=== PATIENT | male | born 1940 | race Native Hawaiian/Other Pacific Islander ===

== ENCOUNTER 2016-06-13 10:22 | Outpatient (CLI) | payer OTHER ==
[2016-06-13 10:45] LABS: PLATELET COUNT 382 K/uL (142-355)
== END 2016-06-13 19:13 | disposition home or self-care (01) ==
LOC: LABW 10:22
PROVIDERS: Internal Medicine
DX: D64.89 Other specified anemias (principal); R53.83 Other fatigue
CPT/HCPCS: 36415; 85027

== ENCOUNTER 2016-09-29 14:24 | Outpatient (CLI) | payer OTHER | END 2016-09-29 15:30 | disposition home or self-care (01) | LOC: LABW 14:24 | DX: M10.072 Idiopathic gout, left ankle and foot (principal) | CPT/HCPCS: 36415; 84550; 85651 ==

== ENCOUNTER 2016-10-27 11:07 | Outpatient (CLI) | payer OTHER | END 2016-10-27 12:10 | disposition home or self-care (01) | LOC: LABW 11:07 | DX: M10.071 Idiopathic gout, right ankle and foot (principal); M10.072 Idiopathic gout, left ankle and foot | CPT/HCPCS: 36415; 84550; 85651 ==

== ENCOUNTER 2016-12-08 10:39 | Outpatient (CLI) | payer OTHER | END 2016-12-08 11:40 | disposition home or self-care (01) | LOC: LABW 10:39 | DX: M10.071 Idiopathic gout, right ankle and foot (principal); M10.072 Idiopathic gout, left ankle and foot | CPT/HCPCS: 36415; 84550 ==

== ENCOUNTER 2016-12-20 09:48 | Outpatient (CLI) | payer OTHER | END 2016-12-20 10:50 | disposition home or self-care (01) | LOC: LABW 09:48 | DX: B35.1 Tinea unguium (principal) | CPT/HCPCS: 36415; 84450; 84460 ==

== ENCOUNTER 2017-06-05 11:03 | Outpatient (CLI) | payer OTHER | END 2017-06-05 21:57 | disposition home or self-care (01) | LOC: LABW 11:03 | DX: M10.072 Idiopathic gout, left ankle and foot (principal) | CPT/HCPCS: 36415; 84550; 85651 ==

== ENCOUNTER 2017-09-03 08:13 | Outpatient (CLI) | payer OTHER | END 2017-09-03 20:13 | disposition home or self-care (01) | LOC: LABW 08:13 | DX: M10.071 Idiopathic gout, right ankle and foot (principal); M10.072 Idiopathic gout, left ankle and foot | CPT/HCPCS: 36415; 84550; 85651 ==

== ENCOUNTER 2018-03-04 08:59 | Outpatient (CLI) | payer OTHER | END 2018-03-04 20:21 | disposition home or self-care (01) | LOC: LABW 08:59 | DX: M10.072 Idiopathic gout, left ankle and foot (principal) | CPT/HCPCS: 36415; 84550 ==

== ENCOUNTER 2020-08-16 08:26 | Outpatient (CLI) | payer OTHER | END 2020-08-16 11:00 | disposition home or self-care (01) | LOC: LABW 08:26 | PROVIDERS: ATTEND Podiatrist | DX: M10.072 Idiopathic gout, left ankle and foot (principal) | CPT/HCPCS: 36415; 84550 ==

== ENCOUNTER 2021-09-12 08:41 | Outpatient (CLI) | payer OTHER | END 2021-09-12 18:48 | disposition home or self-care (01) | LOC: LABW 08:41 | PROVIDERS: ATTEND Podiatrist | DX: M10.072 Idiopathic gout, left ankle and foot (principal) | CPT/HCPCS: 36415; 84550 ==

== ENCOUNTER 2022-03-10 09:45 | Outpatient (CLI) | payer OTHER | END 2022-03-10 19:08 | disposition home or self-care (01) | LOC: CT 09:45 | PROVIDERS: ATTEND Radiology Diagnostic Radiology | DX: T82.330A Leakage of aortic (bifurcation) graft (replacement), initial encounter (principal) | CPT/HCPCS: 36415; 82565; 84520 ==

== ENCOUNTER 2022-04-06 13:14 | Outpatient (CLI) | payer OTHER | END 2022-04-06 20:44 | disposition home or self-care (01) | LOC: LABW 13:14 | PROVIDERS: ATTEND Podiatrist | DX: M10.072 Idiopathic gout, left ankle and foot (principal) | CPT/HCPCS: 36415; 84550 ==

== ENCOUNTER 2022-09-07 10:50 | Outpatient (CLI) | payer OTHER | END 2022-09-07 19:22 | disposition home or self-care (01) | LOC: LABW 10:50 | PROVIDERS: ATTEND Podiatrist | DX: M10.072 Idiopathic gout, left ankle and foot (principal) | CPT/HCPCS: 36415; 84550 ==